=== PATIENT | female | born 1930 | race African-American/Black ===

== ENCOUNTER 2016-08-19 12:29 | Inpatient (IN) ==
--- NOTE | 2016-08-19 13:46 | Ultrasound Report ---
History: Right arm pain and swelling Date: 08/19/2016 Study: Right upper extremity color flow venous Doppler study Comparison exam: No previous similar Color Doppler, wave form analysis, and compression analysis of the deep veins of the right upper extremity from the subclavian and internal jugular vein level through the elbow level was performed. There is some occluding thrombus in the mid to inferior aspect of the medial duplicated brachial vein. The lateral duplicated brachial vein is patent. All other veins are patent. Waveform analysis is otherwise unremarkable. Ultrasound images were captured and archived. Critical test result. Verbal report given to Dr. Colvin at 1:30 PM Impression: Acute DVT right brachial vein PROCEDURE INTERPRETED AT [facility] DEPARTMENT OF RADIOLOGY Final Report Signed by: Dr. Annie Melendez
[2016-08-19] MEDS ORDERED: DEXTROSE 50% 25 GM/50 ML VIAL IV PRN (14:05)
[2016-08-19] MEDS ORDERED: ONDANSETRON 4 MG/2 ML VIAL IV PRN (14:05)
[2016-08-19] MEDS ORDERED: GLUCAGON 1 MG VIAL IM PRN (14:05)
[2016-08-19] MEDS ORDERED: SODIUM CHLORIDE 0.45% 1,000 ML IV SCH (14:30)
[2016-08-19 14:59] LABS: Basophils # 0.1 10*3/uL (0.0-0.2); Basophils % 0.6 % (0.0-0.8); Eosinophils # 0.9 10*3/uL (0.0-0.87); Eosinophils % 9.7 % (0.00-10.9); Hematocrit 33.9 VOL% (35.7-47.0); Hemoglobin 11.2 GM/DL (12.0-16.0); Immature Granulocytes % 0.3 %; Immature Granulocytes Absolute 0.03 #; Lymphocytes # 1.4 10*3/uL (1.4-4.0); Lymphocytes % 15.3 % (21.3-54.2); Mean Corpuscular Hemoglobin 31 PG (27-34); Mean Corpuscular Volume 92.9 FL (87-102); Mean Platelet Volume 12.3 FL (9.6-12.0); Neutrophils # 5.7 10*3/uL (1.4-7.4); Neutrophils % 63.1 % (38.7-73.9); Platelet Count 293 T/CUMM (130-400); Red Blood Count 3.65 MC/CUMM (3.8-5.5)
[2016-08-19 15:35] LABS: Albumin 2.7 G/DL (3.4-5.0); Bilirubin,Total 0.5 MG/DL (0.2-1.0); Calcium 9.2 MG/DL (8.5-10.1); Magnesium 1.6 MG/DL (1.8-2.4); Osmolality,Calculated 283.8 MOS/KG (273-304); Potassium 3.8 MMOL/L (3.5-5.1); Total Protein 7.8 G/DL (6.4-8.3)
[2016-08-19] MEDS: ENOXAPARIN 80 MG/0.8 ML SYRINGE SUBCUT SCH (16:58)
[2016-08-19 17:37] LABS: Apearance,Urine CLEAR (Clear); Bilirubin,Urine Negative (Negative); Blood, Urine Negative (Negative); Glucose,Urine (UA) 50 mg/dL (Negative); Ketones,Urine 5 mg/dL (Negative); Mucus,Urine Occasional /LPF (Occasional); Nitrite,Urine Negative (Negative); Protein,Urine >=500 MG/DL; RBC,Urine 3 /HPF (0-4); Squamous Epithelial Cell,Urine Occasional /HPF (0-10); Urine Color Yellow (Yellow); Urine Specific Gravity 1.013 (1.001-1.035); Urine Urobilinogen < 2.0 EU/DL (0.2-1.0); WBC,Urine 1 /HPF (0-6)
[2016-08-19] MEDS: INSULIN REGULAR 100 UNIT/ML SUBCUT SCH ×2 (18:25→21:44)
--- NOTE | 2016-08-19 19:50 | XRay Report ---
Exam: XR chest 1V portable Indication: Shortness of breath Comparison study: 04/16/2016 Findings: Cardiac silhouette is enlarged, similar to prior. Low lung volumes are noted. There are perihilar and basilar interstitial/airspace opacities, which appear similar to prior may represent underlying interstitial scarring changes with basilar atelectasis. Basilar infiltrates are difficult to exclude. Elevation of the left hemidiaphragm is noted. There is no pneumothorax. Osseous structures appear stable from prior. Advanced degenerative changes are noted in both shoulder joints. Impression: Similar cardiomegaly with chronic interstitial changes and probable basilar scarring/atelectasis. Underlying infiltrates are difficult to exclude. PROCEDURE INTERPRETED AT [facility] DEPARTMENT OF RADIOLOGY Final Report Signed by: Nam Newsome
[2016-08-19] MEDS ORDERED: CETIRIZINE 10 MG TABLET PO PRN (20:26)
--- NOTE | 2016-08-19 20:41 | Family Practice History&Phys ---
Assessment and Plan (1) Acute DVT right brachial vein Status: Acute Assessment and plan: We will admit and start on Lovenox subcutaneously. Will start on Coumadin and adjusted to therapeutic. She is taking Coumadin in the past. She tolerated it well but ultimately it was stopped because of falls. She is now in a more stable environment and should be able to monitor closely. Current Visit: Yes (2) Pancreatic carcinoma Status: Chronic Assessment and plan: This was recently diagnosed by me. She is doing remarkably well so I may ultimately obtain additional current studies Current Visit: Yes (3) History of previous deep vein thrombosis Status: Chronic Assessment and plan: Patient has had previous deep vein thrombosis. She had been on chronic Coumadin therapy but we stopped this due to patient having multiple falls at home. She is now wheelchair-bound and can be monitored closely Current Visit: Yes (4) Asthma Status: Chronic Assessment and plan: Stable on present medications Current Visit: Yes (5) Type 2 diabetes mellitus Status: Chronic Assessment and plan: Stable at present. Will start on sliding scale and monitor closely Current Visit: No Qualifiers: Diabetes mellitus complication status: with kidney complications Chronic kidney disease stage: stage 3 (moderate) (6) diabetic peripheral neuropathy Status: Chronic Assessment and plan: Stable on present medication Current Visit: No (7) gastroesophageal reflux Status: Chronic Assessment and plan: Stable on present medication Current Visit: No (8) hypertension Status: Chronic Assessment and plan: Blood pressures have been elevated according to family members. We will plan to adjust medication Current Visit: No History of Present Illness Chief complaint: Acute deep vein thrombosis right brachial vein History of present illness: Ms. Naqvi is a 85 year old female Patient 85-year-old white female well known to me who is an inpatient at [facility]. She has recently been diagnosed with pancreatic carcinoma. She has been under hospice care at their facility. I have treated this patient for many years and she had requested to see me in clinic. She is actually doing quite well and family states that she has had no significant weight loss. This is surprising in view of the diagnosis of pancreatic carcinoma. Family states that her blood pressures have been elevated. Patient complaining of swelling and pain in her entire right arm over the last week. She apparently had an episode of herpes zoster in the right arm and is has some swelling since that event. There is been increased swelling over the last week with pain. In view of the degree of swelling with diffuse pain a venous Doppler was ordered while in the office. Doppler revealed an acute right brachial vein clot. In view of history we will admit for anticoagulation and further evaluation. She denies any chest pain or shortness of breath. Home Medications Medication Instructions Recorded Confirmed Type Cetirizine Tab [ZyrTEC Tab] 10 mg PO DAILY PRN 11/24/14 04/24/16 History amLODIPine [Norvasc] 10 mg PO DAILY 11/24/14 04/24/16 History metOLazone [Zaroxolyn] 5 mg PO DAILY 11/24/14 04/24/16 History Insulin Glargine,Hum.rec.anlog 35 unit SUBCUT BEDTIME 06/19/15 04/24/16 History [Lantus SoloStar] traMADol TAB [Ultram] 50 mg PO BID 06/19/15 04/24/16 History Carvedilol [Coreg] 6.25 mg PO BID 02/15/16 04/24/16 History Clopidogrel Bisulfate [Clopidogrel] 75 mg PO BEDTIME 04/16/16 04/24/16 History Pantoprazole Tab [Protonix Tab] 40 mg PO DAILY tablet 04/24/16 04/24/16 Rx QUEtiapine [SEROquel] 25 mg PO BID tablet 04/24/16 04/24/16 Rx cloNIDine HCl [Clonidine HCl] 0.1 mg PO BID #60 tablet 05/01/16 Rx Allergies Allergy/AdvReac Type Severity Reaction Status Date / Time acetaminophen Allergy Verified 06/19/15 09:49 [From Darvocet-N] penicillin G Allergy Verified 06/19/15 09:49 propoxyphene Allergy Verified 06/19/15 09:49 [From Darvocet-N] Medical,Surgical,& Family Hx - Medical History Cardio: History of: Hypertension, PVD (dvt-5 years ago) Neurology: History of: Peripheral Neuropathy No history of: Seizures HEENT: History of: Eye Problem (WEARS GLASSES) Endocrine: History of: Diabetes Mellitus (IDDM), Dyslipidemia, Thyroid Disorder (multinodular goiter), Endocrine Cancer (pancreatic cancer) No history of: Diabetes Mellitus (NIDDM) Rheumatology: History of;: Rheumatological Problems (degenerative joint disease) Respiratory: History of: Asthma, COPD Renal: History of: Renal Failure Gastrointestinal: History of: GERD, Pancreatitis (PANCREATIC CANCER) Musculoskeletal: History of: Back/Neck Problems (BACK PROBLEMS), Osteoporosis Hematology: No history of: Anemia, Blood Transfusion Reaction, Bleeding Problems, Clotting Problems, Sickle Cell Disease, Hematologic Cancer, Blood Disorders Reproductive: No history of: Abnormal Pap Smear Other: History of: Miscellaneous Medical Problems (previous deep vein thrombosis ) No history of: Anesthesia Reactions, Cancer - Surgical History Cardiac Surgeries: Patient Denies: Femoral-Popliteal Bypass Graft, Cardiac Catheterization, Cardiac Surgery, Carotid Endarterectomy, Internal Defibrillator, Vascular Access Devices Thoracic Surgeries: Patient denies;: Organ Transplant, Lobectomy Neurologic Surgeries: Patient denies: Neurologic Surgery HEENT Surgeries: Surgical HX of: Eye Surgery (cataracts (BILATERAL)) Patient denies: Carotid Endarterectomy, Thyroid Surgery, Tonsilectomy & Adenoidectomy Abdominal Surgeries: Surgical HX of: Abdominal Surgery, Appendectomy, Colonoscopy Patient denies: Cholecystectomy, Splenectomy Reproductive Surgeries: Surgical HX of;: Gynecologic Surgery (hysterectomy), Hysterectomy (PARTIAL) Orthopedic Surgeries: Surgical HX of;: Total Hip Replacement (right), Total Knee Replacement (bilateral) - Family History Family History: Reports;: Family Diabetes, Family Hypertension, Family Stroke Denies;: Family Cancer - Social History Smoking Status: Never smoker Frequency of Alcohol Use: None Type of Drug Use: None Marital Status: Lives With:: [employer] Functional capacity: wheelchair bound Exam - Constitutional Vitals: Period Temp Pulse Resp BP Sys/Mojica Pulse Ox Last 24 Hr 98.9 F 122 22 168/81 97 General appearance: mild distress - Head Head exam: Present: normal inspection - ENT ENT exam: Present: normal exam - Neck Neck exam: Present: normal inspection - Respiratory Respiratory exam: Present: clear to auscultation bilaterally - Cardiovascular Cardiovascular exam: Present: irregular rhythm - GI/Abdominal GI/Abdominal exam: Present: normal bowel sounds, soft - Extremities Exam Extremities exam: Present: other (Patient has significant swelling in the entire right arm was diffuse tenderness over the posterior medial aspect of the right upper.) - Back Exam Back exam: Present: vertebral tenderness - Neurological Exam Neurological exam: Present: alert, oriented X3 - Psychiatric Psychiatric exam: Present: normal affect, flat affect - Skin Skin exam: Present: normal color Results - Labs CBC & BMP: 08/19/16 14:41 08/19/16 14:41
[2016-08-19] MEDS: DOCUSATE SODIUM 100 MG CAPSULE PO SCH (20:54)
[2016-08-19] MEDS: cloNIDine 0.1 MG TABLET PO SCH (20:55)
[2016-08-19] MEDS: QUEtiapine 25 MG TABLET PO SCH (20:55)
[2016-08-19] MEDS: CARVEDILOL 12.5 MG TABLET PO SCH (20:55)
[2016-08-19] MEDS ORDERED: hydrALAZINE 25 MG TABLET PO SCH (21:00)
[2016-08-19] MEDS: ZALEPLON 5 MG CAPSULE PO SCH (21:43)
[2016-08-19] MEDS: INSULIN GLARGINE 100 UNIT/ML SUBCUT SCH (21:43)
[2016-08-19] MEDS: ESCITALOPRAM 10 MG TABLET PO SCH (21:43)
[2016-08-19] MEDS: traMADol 50 MG TABLET PO SCH (21:50)
[2016-08-19] MEDS: BUDESONIDE/FORMOTEROL 160-4.5 INHALER 6 GM INH SCH (23:50)
[2016-08-20] MEDS: ENOXAPARIN 80 MG/0.8 ML SYRINGE SUBCUT SCH ×2 (03:36→20:36)
[2016-08-20 06:14] LABS: INR 1.1; PT Patient Result 11.6 SECS
[2016-08-20 06:15] LABS: Risk Ratio 2.81; VLDL CHOLESTEROL 15.2 MG/DL
[2016-08-20 06:20] LABS: Basophils # 0.1 10*3/uL (0.0-0.2); Basophils % 0.6 % (0.0-0.8); Eosinophils # 0.9 10*3/uL (0.0-0.87); Eosinophils % 10.6 % (0.00-10.9); Immature Granulocytes % 0.5 %; Immature Granulocytes Absolute 0.04 #; Lymphocytes # 1.7 10*3/uL (1.4-4.0); Lymphocytes % 20.2 % (21.3-54.2); Mean Corpuscular HGB Conc 33.3 GM/DL (32-36); Mean Corpuscular Hemoglobin 31 PG (27-34); Mean Corpuscular Volume 92.3 FL (87-102); Monocytes # 1.1 10*3/uL (0.11-0.8); Monocytes % 12.9 % (1.7-12.7); Neutrophils # 4.6 10*3/uL (1.4-7.4); Neutrophils % 55.2 % (38.7-73.9); Platelet Count 264 T/CUMM (130-400); Red Blood Count 3.25 MC/CUMM (3.8-5.5); White Blood Count 8.4 T/CUMM (4-12)
[2016-08-20 06:28] LABS: Calcium 8.7 MG/DL (8.5-10.1); Osmolality,Calculated 271.7 MOS/KG (273-304); Thyroid Stimulating Hormone 2.43 uIU/ml (0.358-3.74)
[2016-08-20] MEDS ORDERED: SODIUM CHLOR 0.9% KCL 20 MEQ 20 MEQ/1,000 ML BAG IV SCH (08:00)
--- NOTE | 2016-08-20 08:10 | Family Practice Progress Note ---
Family Practice - PN: Subj Interval history: Patient states she rested well last p.m. She denies any chest pain shortness of breath or other new related complaints. Her blood pressures remain elevated and I have modified her blood pressure medications. Her a.m. labs are stable except potassium is decreased at 3.0. I have added potassium to supplementation and will repeat in a.m.. I have started oral Coumadin and will plan to titrate on a daily basis. Will otherwise continue present treatment plan Exam (Progress Note) - Constitutional Vitals: Period Temp Pulse Resp BP Sys/Mojica Pulse Ox Last 24 Hr 98.2 F-99.3 F 71-125 18-22 156-170/79-94 95-100 Results - Labs CBC & BMP: 08/20/16 05:15 08/20/16 05:15 Assessment and Plan (1) Acute DVT right brachial vein Status: Acute Assessment and plan: We will admit and start on Lovenox subcutaneously. Will start on Coumadin and adjusted to therapeutic. She is taking Coumadin in the past. She tolerated it well but ultimately it was stopped because of falls. She is now in a more stable environment and should be able to monitor closely. Current Visit: Yes (2) Pancreatic carcinoma Status: Chronic Assessment and plan: This was recently diagnosed by me. She is doing remarkably well so I may ultimately obtain additional current studies Current Visit: Yes (3) History of previous deep vein thrombosis Status: Chronic Assessment and plan: Patient has had previous deep vein thrombosis. She had been on chronic Coumadin therapy but we stopped this due to patient having multiple falls at home. She is now wheelchair-bound and can be monitored closely Current Visit: Yes (4) Asthma Status: Chronic Assessment and plan: Stable on present medications Current Visit: Yes (5) Type 2 diabetes mellitus Status: Chronic Assessment and plan: Stable at present. Will start on sliding scale and monitor closely Current Visit: No Qualifiers: Diabetes mellitus complication status: with kidney complications Chronic kidney disease stage: stage 3 (moderate) (6) diabetic peripheral neuropathy Status: Chronic Assessment and plan: Stable on present medication Current Visit: No (7) gastroesophageal reflux Status: Chronic Assessment and plan: Stable on present medication Current Visit: No (8) hypertension Status: Chronic Assessment and plan: Blood pressures have been elevated according to family members. We will plan to adjust medication Current Visit: No
[2016-08-20] MEDS: INSULIN REGULAR 100 UNIT/ML SUBCUT SCH ×4 (09:58→21:45)
[2016-08-20] MEDS: DOCUSATE SODIUM 100 MG CAPSULE PO SCH ×2 (09:58→20:37)
[2016-08-20] MEDS: PANTOPRAZOLE 40 MG TABLET PO SCH (09:58)
[2016-08-20] MEDS: amLODIPine 10 MG TABLET PO SCH (09:58)
[2016-08-20] MEDS: traMADol 50 MG TABLET PO SCH ×2 (09:59→20:38)
[2016-08-20] MEDS: metOLazone 5 MG TABLET PO SCH (09:59)
[2016-08-20] MEDS: CARVEDILOL 12.5 MG TABLET PO SCH ×2 (09:59→20:38)
[2016-08-20] MEDS: cloNIDine 0.1 MG TABLET PO SCH ×2 (09:59→20:38)
[2016-08-20] MEDS: BUDESONIDE/FORMOTEROL 160-4.5 INHALER 6 GM INH SCH ×2 (09:59→20:43)
[2016-08-20] MEDS: QUEtiapine 25 MG TABLET PO SCH ×2 (09:59→20:37)
[2016-08-20] MEDS: oxyCODONE/ACETAMINOPHEN 5-325 MG TABLET PO PRN (12:26)
[2016-08-20] MEDS: WARFARIN 5 MG TABLET PO SCH (17:41)
[2016-08-20] MEDS: ZALEPLON 5 MG CAPSULE PO SCH (20:37)
[2016-08-20] MEDS: ESCITALOPRAM 10 MG TABLET PO SCH (20:37)
[2016-08-20] MEDS: INSULIN GLARGINE 100 UNIT/ML SUBCUT SCH (21:46)
[2016-08-21 07:40] LABS: Basophils % 0.6 % (0.0-0.8); Eosinophils # 0.2 10*3/uL (0.0-0.87); Eosinophils % 2.6 % (0.00-10.9); Hematocrit 28.6 VOL% (35.7-47.0); Hemoglobin 9.4 GM/DL (12.0-16.0); Immature Granulocytes % 0.3 %; Immature Granulocytes Absolute 0.02 #; Lymphocytes # 1.3 10*3/uL (1.4-4.0); Lymphocytes % 18.8 % (21.3-54.2); Mean Corpuscular HGB Conc 32.9 GM/DL (32-36); Mean Corpuscular Hemoglobin 31 PG (27-34); Mean Corpuscular Volume 93.8 FL (87-102); Monocytes # 0.6 10*3/uL (0.11-0.8); Monocytes % 8.9 % (1.7-12.7); Neutrophils # 4.7 10*3/uL (1.4-7.4); Neutrophils % 68.8 % (38.7-73.9); Platelet Count 243 T/CUMM (130-400); Red Blood Count 3.05 MC/CUMM (3.8-5.5); Red Cell Distribution Width 15.4 % (9.3-17.3); White Blood Count 6.9 T/CUMM (4-12)
[2016-08-21 07:54] LABS: INR 1.1; PT Patient Result 11.4 SECS
[2016-08-21] MEDS ORDERED: WARFARIN 2 MG TABLET PO ONE (08:00)
[2016-08-21 08:15] LABS: Calcium 8.6 MG/DL (8.5-10.1); Osmolality,Calculated 286.4 MOS/KG (273-304); Potassium 3.2 MMOL/L (3.5-5.1)
--- NOTE | 2016-08-21 08:35 | Family Practice Progress Note ---
Family Practice - PN: Subj Interval history: Patient states that she is generally doing well. Still has swelling in right arm side of clot but no significant pain. Denies any new complaints. Her a.m. labs the INR is still subtherapeutic at 1.1. Will give extra dose of Coumadin today. Her a.m. potassium is still slightly decreased at 3.2 and a magnesium is decreased. Have added potassium and magnesium to IV supplementation. We will also adjust her sliding scale as her blood sugars are elevated. Her physical exam is otherwise stable. We will continue present treatment plan Exam (Progress Note) - Constitutional Vitals: Period Temp Pulse Resp BP Sys/Mojica Pulse Ox Last 24 Hr 97.2 F-99.0 F 78-122 18-22 131-167/70-88 94-100 Results - Labs CBC & BMP: 08/21/16 06:38 08/21/16 06:38 Assessment and Plan (1) Acute DVT right brachial vein Status: Acute Assessment and plan: We will admit and start on Lovenox subcutaneously. Will start on Coumadin and adjusted to therapeutic. She is taking Coumadin in the past. She tolerated it well but ultimately it was stopped because of falls. She is now in a more stable environment and should be able to monitor closely. Current Visit: Yes (2) Pancreatic carcinoma Status: Chronic Assessment and plan: This was recently diagnosed by me. She is doing remarkably well so I may ultimately obtain additional current studies Current Visit: Yes (3) History of previous deep vein thrombosis Status: Chronic Assessment and plan: Patient has had previous deep vein thrombosis. She had been on chronic Coumadin therapy but we stopped this due to patient having multiple falls at home. She is now wheelchair-bound and can be monitored closely Current Visit: Yes (4) Asthma Status: Chronic Assessment and plan: Stable on present medications Current Visit: Yes (5) Type 2 diabetes mellitus Status: Chronic Assessment and plan: Stable at present. Will start on sliding scale and monitor closely Current Visit: No Qualifiers: Diabetes mellitus complication status: with kidney complications Chronic kidney disease stage: stage 3 (moderate) (6) diabetic peripheral neuropathy Status: Chronic Assessment and plan: Stable on present medication Current Visit: No (7) gastroesophageal reflux Status: Chronic Assessment and plan: Stable on present medication Current Visit: No (8) hypertension Status: Chronic Assessment and plan: Blood pressures have been elevated according to family members. We will plan to adjust medication Current Visit: No
[2016-08-21] MEDS: INSULIN REGULAR 100 UNIT/ML SUBCUT SCH ×4 (09:44→21:21)
[2016-08-21] MEDS: ENOXAPARIN 80 MG/0.8 ML SYRINGE SUBCUT SCH ×2 (09:45→21:13)
[2016-08-21] MEDS: cloNIDine 0.1 MG TABLET PO SCH ×2 (09:45→21:13)
[2016-08-21] MEDS: PANTOPRAZOLE 40 MG TABLET PO SCH (09:45)
[2016-08-21] MEDS: amLODIPine 10 MG TABLET PO SCH (09:45)
[2016-08-21] MEDS: CARVEDILOL 12.5 MG TABLET PO SCH ×2 (09:45→21:13)
[2016-08-21] MEDS: metOLazone 5 MG TABLET PO SCH (09:45)
[2016-08-21] MEDS: traMADol 50 MG TABLET PO SCH ×2 (09:46→21:13)
[2016-08-21] MEDS: QUEtiapine 25 MG TABLET PO SCH ×2 (09:46→21:13)
[2016-08-21] MEDS: BUDESONIDE/FORMOTEROL 160-4.5 INHALER 6 GM INH SCH ×2 (09:47→21:16)
[2016-08-21] MEDS: DOCUSATE SODIUM 100 MG CAPSULE PO SCH ×2 (09:47→21:21)
[2016-08-21] MEDS: BISMUTH SUBSALICYLATE 30 ML/524 MG 240 ML/BOTTLE PO PRN ×3 (12:37→21:13)
[2016-08-21] MEDS: POTASSIUM CHLORIDE INJ 10 MEQ, MAGNESIUM SULF INJ 1 GM in SODIUM CHLORIDE 0.45% 1,000 ML IV SCH (15:28)
[2016-08-21] MEDS: WARFARIN 5 MG TABLET PO SCH (18:29)
[2016-08-21] MEDS: ESCITALOPRAM 10 MG TABLET PO SCH (21:13)
[2016-08-21] MEDS: ZALEPLON 5 MG CAPSULE PO SCH (21:13)
[2016-08-21] MEDS: INSULIN GLARGINE 100 UNIT/ML SUBCUT SCH (21:20)
[2016-08-22 04:22] LABS: Basophils # 0.1 10*3/uL (0.0-0.2); Basophils % 0.7 % (0.0-0.8); Eosinophils # 0.8 10*3/uL (0.0-0.87); Hematocrit 28.5 VOL% (35.7-47.0); Hemoglobin 9.4 GM/DL (12.0-16.0); Immature Granulocytes % 0.4 %; Immature Granulocytes Absolute 0.03 #; Lymphocytes # 1.7 10*3/uL (1.4-4.0); Lymphocytes % 22.3 % (21.3-54.2); Mean Corpuscular Hemoglobin 31 PG (27-34); Mean Corpuscular Volume 93.1 FL (87-102); Mean Platelet Volume 12.4 FL (9.6-12.0); Monocytes # 0.8 10*3/uL (0.11-0.8); Monocytes % 11.1 % (1.7-12.7); Neutrophils # 4.2 10*3/uL (1.4-7.4); Neutrophils % 55.5 % (38.7-73.9); Platelet Count 261 T/CUMM (130-400); Red Blood Count 3.06 MC/CUMM (3.8-5.5); Red Cell Distribution Width 15.3 % (9.3-17.3); White Blood Count 7.5 T/CUMM (4-12)
[2016-08-22 04:34] LABS: INR 1.2; PT Patient Result 13.3 SECS
[2016-08-22] MEDS: BISMUTH SUBSALICYLATE 30 ML/524 MG 240 ML/BOTTLE PO PRN ×3 (04:45→14:37)
[2016-08-22 04:49] LABS: Calcium 8.4 MG/DL (8.5-10.1); Osmolality,Calculated 279.7 MOS/KG (273-304); Potassium 2.9 MMOL/L (3.5-5.1)
[2016-08-22] MEDS: INSULIN REGULAR 100 UNIT/ML SUBCUT SCH ×4 (10:08→20:40)
[2016-08-22] MEDS: ENOXAPARIN 80 MG/0.8 ML SYRINGE SUBCUT SCH ×2 (10:08→20:33)
[2016-08-22] MEDS: PANTOPRAZOLE 40 MG TABLET PO SCH (10:09)
[2016-08-22] MEDS: QUEtiapine 25 MG TABLET PO SCH ×2 (10:09→20:34)
[2016-08-22] MEDS: traMADol 50 MG TABLET PO SCH ×2 (10:09→20:34)
[2016-08-22] MEDS: cloNIDine 0.1 MG TABLET PO SCH ×2 (10:09→20:34)
[2016-08-22] MEDS: DOCUSATE SODIUM 100 MG CAPSULE PO SCH ×2 (10:09→20:35)
[2016-08-22] MEDS: amLODIPine 10 MG TABLET PO SCH (10:09)
[2016-08-22] MEDS: metOLazone 5 MG TABLET PO SCH (10:09)
[2016-08-22] MEDS: CARVEDILOL 12.5 MG TABLET PO SCH ×2 (10:09→20:34)
[2016-08-22] MEDS: BUDESONIDE/FORMOTEROL 160-4.5 INHALER 6 GM INH SCH ×2 (10:10→20:40)
[2016-08-22] MEDS: POTASSIUM CHLORIDE RIDER 10 MEQ in PREMIX 1 EACH IV SCH ×4 (10:23→14:33)
[2016-08-22] MEDS: fentaNYL 25 MCG/HR PATCH TRANSDERM SCH (10:52)
--- NOTE | 2016-08-22 13:04 | Family Practice Progress Note ---
Family Practice - PN: Subj Interval history: Patient was admitted with acute swelling and pain in her right arm. Found to have a clot in the right brachial vein. She has a history of recurrent deep vein thrombosis and had been on chronic Coumadin. We had stopped this at home because of frequent falls. She was recently admitted and found to have pancreatic carcinoma. She is presently living in a nursing care facility. She is on Lovenox at present and I have started increasing dose of Coumadin until therapeutic. She is primarily restricted to a wheelchair and is being monitored closely so hopefully will be able to do well with the Coumadin. Her INR this a.m. is 1.2. We will continue present treatment plan Exam (Progress Note) - Constitutional Vitals: Period Temp Pulse Resp BP Sys/Mojica Pulse Ox Last 24 Hr 97.7 F-98.7 F 76-120 16-22 143-182/63-89 2-99 Results - Labs CBC & BMP: 08/22/16 03:34 08/22/16 03:34 Assessment and Plan (1) Acute DVT right brachial vein Status: Acute Assessment and plan: We will admit and start on Lovenox subcutaneously. Will start on Coumadin and adjusted to therapeutic. She is taking Coumadin in the past. She tolerated it well but ultimately it was stopped because of falls. She is now in a more stable environment and should be able to monitor closely. Current Visit: Yes (2) Pancreatic carcinoma Status: Chronic Assessment and plan: This was recently diagnosed by me. She is doing remarkably well so I may ultimately obtain additional current studies Current Visit: Yes (3) History of previous deep vein thrombosis Status: Chronic Assessment and plan: Patient has had previous deep vein thrombosis. She had been on chronic Coumadin therapy but we stopped this due to patient having multiple falls at home. She is now wheelchair-bound and can be monitored closely Current Visit: Yes (4) Asthma Status: Chronic Assessment and plan: Stable on present medications Current Visit: Yes (5) Type 2 diabetes mellitus Status: Chronic Assessment and plan: Stable at present. Will start on sliding scale and monitor closely Current Visit: No Qualifiers: Diabetes mellitus complication status: with kidney complications Chronic kidney disease stage: stage 3 (moderate) (6) diabetic peripheral neuropathy Status: Chronic Assessment and plan: Stable on present medication Current Visit: No (7) gastroesophageal reflux Status: Chronic Assessment and plan: Stable on present medication Current Visit: No (8) hypertension Status: Chronic Assessment and plan: Blood pressures have been elevated according to family members. We will plan to adjust medication Current Visit: No
[2016-08-22] MEDS: WARFARIN 5 MG TABLET PO SCH (19:08)
[2016-08-22] MEDS: ESCITALOPRAM 10 MG TABLET PO SCH (20:34)
[2016-08-22] MEDS: ZALEPLON 5 MG CAPSULE PO SCH (20:34)
[2016-08-22] MEDS: INSULIN GLARGINE 100 UNIT/ML SUBCUT SCH (20:41)
[2016-08-22] MEDS: POTASSIUM CHLORIDE INJ 10 MEQ, MAGNESIUM SULF INJ 1 GM in SODIUM CHLORIDE 0.45% 1,000 ML IV SCH ×2 (21:56→21:57)
[2016-08-23 07:28] LABS: Basophils # 0.1 10*3/uL (0.0-0.2); Basophils % 0.8 % (0.0-0.8); Eosinophils # 1.8 10*3/uL (0.0-0.87); Eosinophils % 23.7 % (0.00-10.9); Hematocrit 29.7 VOL% (35.7-47.0); Hemoglobin 9.5 GM/DL (12.0-16.0); Immature Granulocytes % 0.3 %; Immature Granulocytes Absolute 0.02 #; Lymphocytes # 1.6 10*3/uL (1.4-4.0); Lymphocytes % 20.3 % (21.3-54.2); Mean Corpuscular Hemoglobin 31 PG (27-34); Mean Corpuscular Volume 95.5 FL (87-102); Mean Platelet Volume 11.9 FL (9.6-12.0); Monocytes # 0.8 10*3/uL (0.11-0.8); Monocytes % 10.8 % (1.7-12.7); Neutrophils # 3.4 10*3/uL (1.4-7.4); Neutrophils % 44.1 % (38.7-73.9); Platelet Count 284 T/CUMM (130-400); Red Blood Count 3.11 MC/CUMM (3.8-5.5); Red Cell Distribution Width 15.4 % (9.3-17.3); White Blood Count 7.7 T/CUMM (4-12)
[2016-08-23 07:36] LABS: INR 1.7
[2016-08-23 07:50] LABS: Eosinophils 27 % (0-10); Lymphocytes 20 % (20-55); Platelet Estimate Adequate; Segmented Neutrophils 47 % (50-85); Total Cells Counted 100
[2016-08-23 07:51] LABS: Hypochromasia 1+; Ovalocytes Slight
[2016-08-23 07:54] LABS: Calcium 8.4 MG/DL (8.5-10.1); Osmolality,Calculated 276.8 MOS/KG (273-304); Potassium 3.1 MMOL/L (3.5-5.1)
[2016-08-23] MEDS: ENOXAPARIN 80 MG/0.8 ML SYRINGE SUBCUT SCH ×2 (09:26→20:36)
[2016-08-23] MEDS: INSULIN REGULAR 100 UNIT/ML SUBCUT SCH ×4 (09:26→22:02)
[2016-08-23] MEDS: QUEtiapine 25 MG TABLET PO SCH ×2 (09:27→20:39)
[2016-08-23] MEDS: PANTOPRAZOLE 40 MG TABLET PO SCH (09:27)
[2016-08-23] MEDS: metOLazone 5 MG TABLET PO SCH (09:27)
[2016-08-23] MEDS: CARVEDILOL 12.5 MG TABLET PO SCH ×2 (09:27→20:39)
[2016-08-23] MEDS: DOCUSATE SODIUM 100 MG CAPSULE PO SCH ×2 (09:27→20:39)
[2016-08-23] MEDS: BUDESONIDE/FORMOTEROL 160-4.5 INHALER 6 GM INH SCH ×2 (09:28→20:35)
[2016-08-23] MEDS: POTASSIUM CHLORIDE INJ 10 MEQ, MAGNESIUM SULF INJ 1 GM in SODIUM CHLORIDE 0.45% 1,000 ML IV SCH ×2 (09:53→13:31)
[2016-08-23] MEDS: cloNIDine 0.1 MG TABLET PO SCH ×2 (09:54→20:40)
[2016-08-23] MEDS: traMADol 50 MG TABLET PO SCH ×2 (09:54→20:39)
[2016-08-23] MEDS: amLODIPine 10 MG TABLET PO SCH (09:57)
--- NOTE | 2016-08-23 11:06 | Internal Med Progress Note ---
Assessment and Plan (1) Acute DVT right brachial vein Status: Acute Assessment and plan: 85-year-old female implanted to acute care * Acute DVT of right brachial vein. Patient has been on anticoagulation. Her INR is 1.7 today. Continue current treatment. * Hypokalemia. Will replace her potassium * Hypertension. Blood pressure is stable * History of pancreatic cancer. Stable * Diabetes. Continue current treatment Current Visit: Yes (2) Pancreatic carcinoma Status: Chronic Current Visit: Yes (3) Type 2 diabetes mellitus Status: Chronic Current Visit: No Qualifiers: Diabetes mellitus complication status: with kidney complications Chronic kidney disease stage: stage 3 (moderate) (4) diabetic nephropathy Problem details: Stable. Status: Chronic Current Visit: No (5) gastroesophageal reflux Status: Chronic Current Visit: No (6) hypertension Status: Chronic Current Visit: No Internal Medicine - PN: Subj Interval history: 85-year-old female who was admitted with pain and swelling in her right arm. She has history of recurrent DVT. Patient has been started on Coumadin and Lovenox. She has history of diabetes, diabetic neuropathy, gastroesophageal reflux disease, hypertension, pancreatic cancer. She is feeling better this morning. No chest pain or shortness of breath. No nausea or vomiting Exam (Progress Note) - Constitutional Vitals: Period Temp Pulse Resp BP Sys/Mojica Pulse Ox Last 24 Hr 97.1 F-98.6 F 112-128 20-24 131-182/59-84 2-100 General appearance: no acute distress, over weight - Head Head exam: Present: normal inspection - Eye Eye exam: Present: EOMI Pupils: Present: LELO - Neck Neck exam: Present: normal inspection - Respiratory Respiratory exam: Present: clear to auscultation bilaterally - Cardiovascular Cardiovascular exam: Present: regular rate and rhythm - GI/Abdominal GI/Abdominal exam: Present: normal bowel sounds, soft. Absent: tenderness - Extremities Exam Extremities exam: Present: normal inspection, other (Has swelling in the right upper extremity). Absent: edema Results - Labs CBC & BMP: 08/23/16 07:00 08/23/16 07:00 Lab Results: I have reviewed the past 24 hour labs
[2016-08-23] MEDS: POTASSIUM CHLORIDE 8 MEQ CAPSULE PO SCH ×2 (13:31→20:39)
[2016-08-23] MEDS: oxyCODONE/ACETAMINOPHEN 5-325 MG TABLET PO PRN (15:31)
[2016-08-23] MEDS: WARFARIN 5 MG TABLET PO SCH (17:49)
[2016-08-23] MEDS: ESCITALOPRAM 10 MG TABLET PO SCH (20:39)
[2016-08-23] MEDS: ZALEPLON 5 MG CAPSULE PO SCH (20:39)
[2016-08-23] MEDS: INSULIN GLARGINE 100 UNIT/ML SUBCUT SCH (22:02)
[2016-08-24] MEDS: POTASSIUM CHLORIDE INJ 10 MEQ, MAGNESIUM SULF INJ 1 GM in SODIUM CHLORIDE 0.45% 1,000 ML IV SCH ×2 (04:49)
[2016-08-24 06:58] LABS: INR 2.1
[2016-08-24 07:04] LABS: PT Patient Result 22.9 SECS
[2016-08-24 07:28] LABS: Calcium 8.3 MG/DL (8.5-10.1); Osmolality,Calculated 277.7 MOS/KG (273-304); Potassium 3.3 MMOL/L (3.5-5.1)
[2016-08-24] MEDS: amLODIPine 10 MG TABLET PO SCH (09:24)
[2016-08-24] MEDS: metOLazone 5 MG TABLET PO SCH (09:24)
[2016-08-24] MEDS: QUEtiapine 25 MG TABLET PO SCH ×2 (09:24→20:50)
[2016-08-24] MEDS: DOCUSATE SODIUM 100 MG CAPSULE PO SCH ×2 (09:24→20:51)
[2016-08-24] MEDS: POTASSIUM CHLORIDE 8 MEQ CAPSULE PO SCH ×3 (09:24→20:51)
[2016-08-24] MEDS: traMADol 50 MG TABLET PO SCH ×2 (09:24→20:50)
[2016-08-24] MEDS: PANTOPRAZOLE 40 MG TABLET PO SCH (09:25)
[2016-08-24] MEDS: cloNIDine 0.1 MG TABLET PO SCH ×2 (09:25→20:51)
[2016-08-24] MEDS: INSULIN REGULAR 100 UNIT/ML SUBCUT SCH ×4 (09:25→21:00)
[2016-08-24] MEDS: CARVEDILOL 12.5 MG TABLET PO SCH ×2 (09:25→20:50)
[2016-08-24] MEDS: ENOXAPARIN 80 MG/0.8 ML SYRINGE SUBCUT SCH (09:28)
[2016-08-24] MEDS: BUDESONIDE/FORMOTEROL 160-4.5 INHALER 6 GM INH SCH ×2 (09:28→20:50)
--- NOTE | 2016-08-24 10:22 | Internal Med Progress Note ---
Assessment and Plan (1) Acute DVT right brachial vein Status: Acute Assessment and plan: 85-year-old female implanted to acute care * Acute DVT of right brachial vein. INR is 2. Will DC Lovenox * Hypokalemia. Will replace her potassium * Hypertension. Blood pressure is stable * History of pancreatic cancer. Stable * Diabetes. Continue current treatment * She is eating better. We will DC IV fluid Current Visit: Yes (2) Pancreatic carcinoma Status: Chronic Current Visit: Yes (3) Type 2 diabetes mellitus Status: Chronic Current Visit: No Qualifiers: Diabetes mellitus complication status: with kidney complications Chronic kidney disease stage: stage 3 (moderate) (4) diabetic nephropathy Problem details: Stable. Status: Chronic Current Visit: No (5) gastroesophageal reflux Status: Chronic Current Visit: No (6) hypertension Status: Chronic Current Visit: No Internal Medicine - PN: Subj Interval history: 85-year-old female who was admitted with pain and swelling in her right arm. She has history of recurrent DVT. Patient has been started on Coumadin and Lovenox. She has history of diabetes, diabetic neuropathy, gastroesophageal reflux disease, hypertension, pancreatic cancer. She is still having some pain in her right arm. She finds difficult to eat. No chest pain or shortness of breath. Exam (Progress Note) - Constitutional Vitals: Period Temp Pulse Resp BP Sys/Mojica Pulse Ox Last 24 Hr 98.2 F-98.6 F 80-121 18-24 137-204/60-89 95-100 General appearance: over weight - Head Head exam: Present: normal inspection - Eye Eye exam: Present: EOMI Pupils: Present: LELO - Neck Neck exam: Present: normal inspection - Respiratory Respiratory exam: Present: clear to auscultation bilaterally - GI/Abdominal GI/Abdominal exam: Present: normal bowel sounds, soft. Absent: tenderness - Extremities Exam Extremities exam: Present: normal inspection, other (Swelling in the right upper extremity). Absent: edema Results - Labs CBC & BMP: 08/23/16 07:00 08/24/16 04:21 Lab Results: I have reviewed the past 24 hour labs
[2016-08-24] MEDS: oxyCODONE/ACETAMINOPHEN 5-325 MG TABLET PO PRN (13:02)
[2016-08-24] MEDS: WARFARIN 5 MG TABLET PO SCH (18:32)
[2016-08-24] MEDS: INSULIN GLARGINE 100 UNIT/ML SUBCUT SCH (20:50)
[2016-08-24] MEDS: ZALEPLON 5 MG CAPSULE PO SCH (20:51)
[2016-08-24] MEDS: ESCITALOPRAM 10 MG TABLET PO SCH (20:51)
[2016-08-25] MEDS: oxyCODONE/ACETAMINOPHEN 5-325 MG TABLET PO PRN (06:11)
--- NOTE | 2016-08-25 07:49 | Discharge Summary ---
Hospital Course - Hospital Course Hospital Course: Ms. Naqvi is a 85 year old female Patient 85-year-old white female well known to me who is an inpatient at [facility]. She has recently been diagnosed with pancreatic carcinoma. She has been under hospice care at their facility. I have treated this patient for many years and she had requested to see me in clinic. She is actually doing quite well and family states that she has had no significant weight loss. This is surprising in view of the diagnosis of pancreatic carcinoma. Family states that her blood pressures have been elevated. Patient complaining of swelling and pain in her entire right arm over the last week. She apparently had an episode of herpes zoster in the right arm and is has some swelling since that event. There is been increased swelling over the last week with pain. In view of the degree of swelling with diffuse pain a venous Doppler was ordered while in the office. Doppler revealed an acute right brachial vein clot. In view of history we will admit for anticoagulation and further evaluation. She denies any chest pain or shortness of breath. Hospital course-patient was admitted to hospital lab and x-ray studies obtained. She was initially started on Lovenox subcutaneously and subsequently started on oral Coumadin. Patient did remarkably well and had no problems throughout admission. An INR was checked daily and is now therapeutic at 2.0. Swelling in right arm is slightly improved but has no pain today. Advised that the swelling may improve with time but it may not go away at all. Will discharge patient back to the nursing care facility and have them check weekly protimes to maintain therapeutic levels. We will have him advance to monthly protimes as indicated. She really needs to remain on Coumadin for the remainder of her life. She has had multiple DVTs in the past. Will discharge to their facility and send copies the appropriate records. If patient continues to maintain weight and do well I would consider repeating a abdominal CT in the near future. Diagnosis - Discharge Diagnosis (1) Acute DVT right brachial vein Status: Acute (2) Pancreatic carcinoma Status: Chronic (3) History of previous deep vein thrombosis Status: Chronic (4) Asthma Status: Chronic (5) Type 2 diabetes mellitus Status: Chronic (6) diabetic peripheral neuropathy Status: Chronic (7) gastroesophageal reflux Status: Chronic (8) hypertension Status: Chronic Discharge Plan - Discharge Data Disposition: Disch/Xfer to Snf Condition at Discharge: Stable Discharge Diet: diabetic diet Activity: ambulate only with your walker Hygiene: may shower Weight Bearing at Discharge: weight bear as tolerated Contact your physician if you experience:: fever over 101, Shortness of breath - Discharge Medications New Carvedilol [Coreg] 25 mg PO BID #60 tablet Warfarin [Coumadin] 5 mg PO DAILY@1800 #30 tablet Discontinued Carvedilol [Coreg] 6.25 mg PO BID Clopidogrel Bisulfate [Clopidogrel] 75 mg PO BEDTIME No Action amLODIPine [Norvasc] 10 mg PO DAILY Cetirizine Tab [ZyrTEC Tab] 10 mg PO DAILY PRN PRN Reason: Sinus Symptoms metOLazone [Zaroxolyn] 5 mg PO DAILY traMADol TAB [Ultram] 50 mg PO BID Insulin Glargine,Hum.rec.anlog [Lantus SoloStar] 35 unit SUBCUT BEDTIME QUEtiapine [SEROquel] 25 mg PO BID tablet Pantoprazole Tab [Protonix Tab] 40 mg PO DAILY tablet cloNIDine HCl [Clonidine HCl] 0.1 mg PO BID #60 tablet - Follow Up or Referral Follow Up: Miguelangel Colvin DO [Primary Care Provider] - 1 Month - Forms/Instructions Exam - Constitutional Vitals: Period Temp Pulse Resp BP Sys/Mojica Pulse Ox Last 24 Hr 97.8 F-98.6 F 105-121 20-22 146-204/76-89 99-100 General appearance: no acute distress - Head Head exam: Present: normal inspection - ENT ENT exam: Present: normal exam - Respiratory Respiratory exam: Present: clear to auscultation bilaterally - Cardiovascular Cardiovascular exam: Present: irregular rhythm - GI/Abdominal GI/Abdominal exam: Present: normal bowel sounds, soft - Extremities Exam Extremities exam: Present: other (Patient has significant swelling in the entire right arm. She is wheelchair-bound at present) - Back Exam Back exam: Present: normal inspection - Neurological Exam Neurological exam: Present: alert, oriented X3 - Psychiatric Psychiatric exam: Present: normal affect - Skin Skin exam: Present: normal color Discharge Results Labs on day of discharge: Labs from last 24 hours 08/25/16 08/24/16 08/24/16 04:33 20:18 16:36 INR 2.0 PT Patient/Control Mix 22.0 POC Glucose 137 H 149 H 08/24/16 08/24/16 10:22 08:58 INR PT Patient/Control Mix POC Glucose 244 H 255 H DS: Provider Date of admission: 08/19/16 14:05 Primary care physician: Miguelangel Colvin DO Attending physician on admission: Miguelangel Colvin DO Discharging clinician: Miguelangel Colvin DO
[2016-08-25] MEDS ORDERED: CARVEDILOL 25 MG TABLET PO SCH (08:00)
[2016-08-25] MEDS: INSULIN REGULAR 100 UNIT/ML SUBCUT SCH (09:33)
[2016-08-25] MEDS: fentaNYL 25 MCG/HR PATCH TRANSDERM SCH (09:34)
[2016-08-25] MEDS: metOLazone 5 MG TABLET PO SCH (09:35)
[2016-08-25] MEDS: QUEtiapine 25 MG TABLET PO SCH (09:36)
[2016-08-25] MEDS: DOCUSATE SODIUM 100 MG CAPSULE PO SCH (09:36)
[2016-08-25] MEDS: traMADol 50 MG TABLET PO SCH (09:36)
[2016-08-25] MEDS: POTASSIUM CHLORIDE 8 MEQ CAPSULE PO SCH (09:36)
[2016-08-25] MEDS: amLODIPine 10 MG TABLET PO SCH (09:36)
[2016-08-25] MEDS: cloNIDine 0.1 MG TABLET PO SCH (09:37)
[2016-08-25] MEDS: PANTOPRAZOLE 40 MG TABLET PO SCH (09:37)
[2016-08-25 10:37] VITALS: BP 190/90
== END 2016-08-25 09:45 | DRG 300 ==
LOC: N.ULTRA 12:29 → N.2E 13:58
PROVIDERS: ADMIT Family Medicine; ATTEND Family Medicine

== ENCOUNTER 2017-02-08 03:25 | Inpatient (IN) ==
[2017-02-08] MEDS ORDERED: MORPHINE 2 MG/1 ML SYRINGE IV STA (04:11)
[2017-02-08] MEDS ORDERED: ONDANSETRON 4 MG/2 ML VIAL IV STA (04:11)
[2017-02-08] MEDS ORDERED: MORPHINE 2 MG/1 ML SYRINGE ONE (04:15)
[2017-02-08] MEDS ORDERED: ONDANSETRON 4 MG/2 ML VIAL ONE ×2 (04:15→13:40)
[2017-02-08 04:41] LABS: Basophils % 0.4 % (0.0-0.8); Eosinophils # 0.1 10*3/uL (0.0-0.87); Eosinophils % 0.8 % (0.00-10.9); Hematocrit 34.7 VOL% (35.7-47.0); Hemoglobin 11.4 GM/DL (12.0-16.0); Immature Granulocytes % 0.3 %; Immature Granulocytes Absolute 0.03 #; Lymphocytes % 9.6 % (21.3-54.2); Mean Corpuscular HGB Conc 32.9 GM/DL (32-36); Mean Corpuscular Hemoglobin 30 PG (27-34); Mean Corpuscular Volume 91.6 FL (87-102); Mean Platelet Volume 11.9 FL (9.6-12.0); Monocytes # 0.6 10*3/uL (0.11-0.8); Monocytes % 5.4 % (1.7-12.7); Neutrophils # 8.6 10*3/uL (1.4-7.4); Neutrophils % 83.5 % (38.7-73.9); Platelet Count 343 T/CUMM (130-400); Red Blood Count 3.79 MC/CUMM (3.8-5.5); Red Cell Distribution Width 14.3 % (9.3-17.3); White Blood Count 10.3 T/CUMM (4-12)
[2017-02-08 04:55] LABS: INR 1.4; PT Patient Result 14.7 SECS; Partial Thromboplastin Time 26.6 SECS (0-40)
[2017-02-08 05:00] LABS: Albumin 2.5 G/DL (3.4-5.0); Bilirubin,Total 0.8 MG/DL (0.2-1.0); Calcium 9.5 MG/DL (8.5-10.1); Osmolality,Calculated 283.2 MOS/KG (273-304); Potassium 3.7 MMOL/L (3.5-5.1); Total Protein 7.9 G/DL (6.4-8.3)
[2017-02-08 05:07] LABS: Apearance,Urine Slightly Hazy (Clear); Bacteria,Urine Occasional /HPF (Few); Bilirubin,Urine Negative (Negative); Blood, Urine Small mg/dL (Negative); Glucose,Urine (UA) 150 mg/dL (Negative); Hyaline Casts,Urine 1 /LPF (0-3); Ketones,Urine 5 mg/dL (Negative); Mucus,Urine Occasional /LPF (Occasional); Nitrite,Urine Negative (Negative); Protein,Urine 100 MG/DL; RBC,Urine 2 /HPF (0-4); Squamous Epithelial Cell,Urine Occasional /HPF (0-10); Urine Color Yellow (Yellow); Urine Specific Gravity 1.008 (1.001-1.035); Urine Urobilinogen < 2.0 EU/DL (0.2-1.0); WBC,Urine 1 /HPF (0-6)
[2017-02-08] MEDS ORDERED: hydrALAZINE 20 MG/1 ML VIAL IV STA (05:09)
[2017-02-08] MEDS ORDERED: hydrALAZINE 20 MG/1 ML VIAL ONE (05:13)
[2017-02-08] MEDS ORDERED: DEXTROSE 50% 25 GM/50 ML VIAL IV PRN ×2 (06:18→12:18)
[2017-02-08] MEDS ORDERED: hydrALAZINE 20 MG/1 ML VIAL IV ONE (06:18)
[2017-02-08] MEDS ORDERED: GLUCAGON 1 MG VIAL IM PRN ×2 (06:18→12:18)
[2017-02-08] MEDS ORDERED: ONDANSETRON 4 MG/2 ML VIAL IV PRN (06:18)
[2017-02-08] MEDS: MORPHINE 2 MG/1 ML SYRINGE IV PRN (08:48)
[2017-02-08] MEDS ORDERED: CETIRIZINE 10 MG TABLET PO PRN (09:11)
[2017-02-08] MEDS ORDERED: KETOROLAC 15 MG/1 ML VIAL IV ONE (09:17)
[2017-02-08] MEDS: DOCUSATE SODIUM 100 MG CAPSULE PO SCH ×2 (10:03→20:49)
[2017-02-08] MEDS: PANTOPRAZOLE 40 MG TABLET PO SCH (10:03)
[2017-02-08 10:05] LABS: INR 1.4; PT Patient Result 14.8 SECS
[2017-02-08] MEDS ORDERED: MORPHINE 2 MG/1 ML SYRINGE IV ONE (11:12)
[2017-02-08] MEDS ORDERED: ALBUTEROL 2.5 MG/3 ML NEB RESP TX ONE (11:31)
[2017-02-08] MEDS ORDERED: SODIUM CHLORIDE 0.9% 1,000 ML IV SCH (12:00)
[2017-02-08] MEDS ORDERED: INSULIN REGULAR 100 UNIT/ML ONE (12:33)
[2017-02-08] MEDS: INSULIN REGULAR 100 UNIT/ML SUBCUT SCH ×3 (12:50→20:57)
[2017-02-08] MEDS ORDERED: ETOMIDATE 20 MG/10 ML VIAL IV ONE (13:40)
[2017-02-08] MEDS ORDERED: KETOROLAC 30 MG/1 ML VIAL ONE (13:40)
[2017-02-08] MEDS ORDERED: GLYCOPYRROLATE 0.4 MG/2 ML VIAL ONE (13:40)
[2017-02-08] MEDS ORDERED: ROCURONIUM 100 MG/10 ML VIAL IV ONE (13:40)
[2017-02-08] MEDS ORDERED: LIDOCAINE 1% 5 ML VIAL ONE (13:40)
[2017-02-08] MEDS ORDERED: DEXAMETHASONE 4 MG/1 ML VIAL ONE (13:40)
[2017-02-08] MEDS ORDERED: PHENYLEPHRINE 1 MG/10 ML SYRINGE IV ONE (13:40)
[2017-02-08] MEDS ORDERED: CLINDAMYCIN INJ 50 ML IV ONE (14:21)
[2017-02-08] MEDS ORDERED: SEVOFLURANE 1 UNIT/15 MINUTE INH ONE (16:42)
[2017-02-08] MEDS ORDERED: fentaNYL 100 MCG/2 ML VIAL ONE (16:43)
[2017-02-08] MEDS ORDERED: NEOSTIGMINE 10 MG/10 ML VIAL ONE (16:43)
[2017-02-08] MEDS ORDERED: ACETAMINOPHEN 1,000 MG/100 ML VIAL IV ONE (16:43)
[2017-02-08] MEDS ORDERED: cloNIDine 0.1 MG TABLET PO ONE (17:00)
[2017-02-08] MEDS ORDERED: amLODIPine 10 MG TABLET PO ONE (17:00)
[2017-02-08 17:07] LABS: Hematocrit 30.5 VOL% (35.7-47.0); Hemoglobin 10.2 GM/DL (12.0-16.0)
[2017-02-08] MEDS: cloNIDine 0.1 MG TABLET PO SCH (20:49)
[2017-02-08] MEDS: traMADol 50 MG TABLET PO SCH (20:50)
[2017-02-08] MEDS: CARVEDILOL 25 MG TABLET PO SCH (20:50)
[2017-02-08] MEDS: QUEtiapine 25 MG TABLET PO SCH (20:50)
[2017-02-08] MEDS: INSULIN GLARGINE 100 UNIT/ML SUBCUT SCH (20:57)
[2017-02-08] MEDS: SODIUM CHLORIDE 0.9% 1,000 ML IV SCH (22:30)
[2017-02-09 04:50] LABS: Hematocrit 21.4 VOL% (35.7-47.0); Hemoglobin 7.2 GM/DL (12.0-16.0)
[2017-02-09] MEDS: SODIUM CHLORIDE 0.9% 1,000 ML IV SCH ×2 (07:02→14:55)
[2017-02-09] MEDS: INSULIN REGULAR 100 UNIT/ML SUBCUT SCH ×4 (07:42→20:15)
[2017-02-09] MEDS ORDERED: SODIUM CHLORIDE 0.9% 250 ML IV PRN (08:30)
[2017-02-09] MEDS: amLODIPine 10 MG TABLET PO SCH (09:07)
[2017-02-09] MEDS: QUEtiapine 25 MG TABLET PO SCH ×2 (09:07→20:14)
[2017-02-09] MEDS: CARVEDILOL 25 MG TABLET PO SCH ×2 (09:07→20:15)
[2017-02-09] MEDS: DOCUSATE SODIUM 100 MG CAPSULE PO SCH ×2 (09:07→20:14)
[2017-02-09] MEDS: metOLazone 5 MG TABLET PO SCH (09:07)
[2017-02-09] MEDS: traMADol 50 MG TABLET PO SCH ×2 (09:07→20:14)
[2017-02-09] MEDS: PANTOPRAZOLE 40 MG TABLET PO SCH (09:08)
[2017-02-09] MEDS: cloNIDine 0.1 MG TABLET PO SCH ×2 (09:08→20:15)
[2017-02-09 09:45] LABS: Basophils % 0.1 % (0.0-0.8); Hematocrit 19.9 VOL% (35.7-47.0); Hemoglobin 6.7 GM/DL (12.0-16.0); Immature Granulocytes % 0.4 %; Immature Granulocytes Absolute 0.05 #; Lymphocytes # 1.3 10*3/uL (1.4-4.0); Lymphocytes % 10.5 % (21.3-54.2); Mean Corpuscular HGB Conc 33.7 GM/DL (32-36); Mean Corpuscular Hemoglobin 31 PG (27-34); Mean Corpuscular Volume 92.1 FL (87-102); Mean Platelet Volume 12.4 FL (9.6-12.0); Monocytes # 1.4 10*3/uL (0.11-0.8); Monocytes % 11.4 % (1.7-12.7); Neutrophils # 9.7 10*3/uL (1.4-7.4); Neutrophils % 77.6 % (38.7-73.9); Platelet Count 243 T/CUMM (130-400); Red Blood Count 2.16 MC/CUMM (3.8-5.5); Red Cell Distribution Width 14.3 % (9.3-17.3); White Blood Count 12.5 T/CUMM (4-12)
[2017-02-09 10:13] LABS: Calcium 7.8 MG/DL (8.5-10.1); Osmolality,Calculated 289.3 MOS/KG (273-304); Potassium 3.9 MMOL/L (3.5-5.1)
[2017-02-09] MEDS ORDERED: SKIN HEALING OINT (AQUAPHOR) 50 GM TUBE TOP PRN (10:13)
[2017-02-09 17:40] LABS: Hemoglobin 10.1 GM/DL (12.0-16.0)
[2017-02-09] MEDS: cloNIDine 0.1 MG TABLET PO PRN (17:40)
[2017-02-09] MEDS: INSULIN GLARGINE 100 UNIT/ML SUBCUT SCH (20:15)
[2017-02-09] MEDS: MORPHINE 2 MG/1 ML SYRINGE IV PRN (22:11)
[2017-02-10] MEDS: SODIUM CHLORIDE 0.9% 1,000 ML IV SCH ×4 (00:40→22:05)
[2017-02-10 03:43] LABS: Basophils % 0.2 % (0.0-0.8); Eosinophils # 0.1 10*3/uL (0.0-0.87); Eosinophils % 1.3 % (0.00-10.9); Hematocrit 26.3 VOL% (35.7-47.0); Hemoglobin 8.9 GM/DL (12.0-16.0); Immature Granulocytes % 0.3 %; Immature Granulocytes Absolute 0.03 #; Lymphocytes # 1.3 10*3/uL (1.4-4.0); Lymphocytes % 15.5 % (21.3-54.2); Mean Corpuscular HGB Conc 33.8 GM/DL (32-36); Mean Corpuscular Hemoglobin 32 PG (27-34); Mean Corpuscular Volume 93.3 FL (87-102); Mean Platelet Volume 12.2 FL (9.6-12.0); Monocytes # 1.3 10*3/uL (0.11-0.8); Neutrophils # 5.9 10*3/uL (1.4-7.4); Neutrophils % 67.7 % (38.7-73.9); Platelet Count 202 T/CUMM (130-400); Red Blood Count 2.82 MC/CUMM (3.8-5.5); Red Cell Distribution Width 14.6 % (9.3-17.3); White Blood Count 8.7 T/CUMM (4-12)
[2017-02-10 03:49] LABS: Calcium 7.6 MG/DL (8.5-10.1); Osmolality,Calculated 283.7 MOS/KG (273-304); Potassium 3.9 MMOL/L (3.5-5.1)
[2017-02-10] MEDS ORDERED: WARFARIN 1 MG TABLET PO ONE (07:41)
[2017-02-10] MEDS: INSULIN REGULAR 100 UNIT/ML SUBCUT SCH ×4 (07:53→21:20)
[2017-02-10] MEDS: QUEtiapine 25 MG TABLET PO SCH ×2 (09:00→20:00)
[2017-02-10] MEDS: CARVEDILOL 25 MG TABLET PO SCH ×2 (09:00→20:00)
[2017-02-10] MEDS: DOCUSATE SODIUM 100 MG CAPSULE PO SCH ×2 (09:00→20:00)
[2017-02-10] MEDS: traMADol 50 MG TABLET PO SCH ×2 (09:00→20:01)
[2017-02-10] MEDS: amLODIPine 10 MG TABLET PO SCH (09:00)
[2017-02-10] MEDS: PANTOPRAZOLE 40 MG TABLET PO SCH (09:00)
[2017-02-10] MEDS: metOLazone 5 MG TABLET PO SCH (09:00)
[2017-02-10] MEDS: cloNIDine 0.1 MG TABLET PO SCH ×2 (09:01→20:00)
[2017-02-10] MEDS: ACETAMINOPHEN 325 MG TABLET PO PRN ×2 (13:31→21:13)
[2017-02-10] MEDS: WARFARIN 5 MG TABLET PO SCH (17:45)
[2017-02-10] MEDS: INSULIN GLARGINE 100 UNIT/ML SUBCUT SCH (21:20)
[2017-02-10] MEDS: MORPHINE 2 MG/1 ML SYRINGE IM PRN (22:03)
[2017-02-11] MEDS: MORPHINE 2 MG/1 ML SYRINGE IM PRN ×2 (03:21→11:19)
[2017-02-11] MEDS: SODIUM CHLORIDE 0.9% 1,000 ML IV SCH (06:58)
[2017-02-11 07:36] LABS: Basophils % 0.2 % (0.0-0.8); Eosinophils # 0.1 10*3/uL (0.0-0.87); Eosinophils % 1.1 % (0.00-10.9); Hematocrit 30.7 VOL% (35.7-47.0); Hemoglobin 10.5 GM/DL (12.0-16.0); Immature Granulocytes % 0.5 %; Immature Granulocytes Absolute 0.06 #; Lymphocytes # 1.3 10*3/uL (1.4-4.0); Lymphocytes % 9.8 % (21.3-54.2); Mean Corpuscular HGB Conc 34.2 GM/DL (32-36); Mean Corpuscular Hemoglobin 31 PG (27-34); Mean Corpuscular Volume 91.9 FL (87-102); Mean Platelet Volume 11.5 FL (9.6-12.0); Monocytes # 1.2 10*3/uL (0.11-0.8); Monocytes % 9.2 % (1.7-12.7); Neutrophils # 10.5 10*3/uL (1.4-7.4); Neutrophils % 79.2 % (38.7-73.9); Platelet Count 277 T/CUMM (130-400); Red Blood Count 3.34 MC/CUMM (3.8-5.5); Red Cell Distribution Width 14.1 % (9.3-17.3); White Blood Count 13.2 T/CUMM (4-12)
[2017-02-11 07:46] LABS: INR 1.2; PT Patient Result 12.3 SECS
[2017-02-11 08:14] LABS: Calcium 8.2 MG/DL (8.5-10.1); Magnesium 1.8 MG/DL (1.8-2.4); Osmolality,Calculated 278.4 MOS/KG (273-304); Potassium 3.2 MMOL/L (3.5-5.1); Thyroid Stimulating Hormone 1.64 uIU/ml (0.358-3.74)
[2017-02-11] MEDS ORDERED: WARFARIN 3 MG TABLET PO ONE (08:28)
[2017-02-11] MEDS: INSULIN REGULAR 100 UNIT/ML SUBCUT SCH ×4 (08:42→20:53)
[2017-02-11] MEDS: traMADol 50 MG TABLET PO SCH ×2 (09:14→20:30)
[2017-02-11] MEDS: MUPIROCIN 2% OINT 22 GM TUBE TOP SCH ×2 (09:14→20:30)
[2017-02-11] MEDS: amLODIPine 10 MG TABLET PO SCH (09:14)
[2017-02-11] MEDS: DOCUSATE SODIUM 100 MG CAPSULE PO SCH ×2 (09:14→20:30)
[2017-02-11] MEDS: QUEtiapine 25 MG TABLET PO SCH ×2 (09:14→20:30)
[2017-02-11] MEDS: PANTOPRAZOLE 40 MG TABLET PO SCH (09:14)
[2017-02-11] MEDS: metOLazone 5 MG TABLET PO SCH (09:14)
[2017-02-11] MEDS: CARVEDILOL 25 MG TABLET PO SCH ×2 (09:14→20:30)
[2017-02-11] MEDS: cloNIDine 0.1 MG TABLET PO SCH ×2 (09:14→20:30)
[2017-02-11] MEDS: SODIUM CHLOR 0.45% KCL 20 MEQ 20 MEQ/1,000 ML BAG IV SCH ×3 (11:16→20:51)
[2017-02-11] MEDS: WARFARIN 5 MG TABLET PO SCH (17:39)
[2017-02-11] MEDS: INSULIN GLARGINE 100 UNIT/ML SUBCUT SCH (20:53)
[2017-02-12] MEDS: MORPHINE 2 MG/1 ML SYRINGE IM PRN ×4 (01:26→15:00)
[2017-02-12 05:14] LABS: INR 1.3; PT Patient Result 13.3 SECS
[2017-02-12] MEDS: SODIUM CHLOR 0.45% KCL 20 MEQ 20 MEQ/1,000 ML BAG IV SCH ×2 (05:37→14:52)
[2017-02-12 05:48] LABS: Calcium 7.6 MG/DL (8.5-10.1); Osmolality,Calculated 274.8 MOS/KG (273-304)
[2017-02-12] MEDS: INSULIN REGULAR 100 UNIT/ML SUBCUT SCH ×4 (07:25→22:44)
[2017-02-12 07:36] LABS: Apearance,Urine CLOUDY (Clear); Bacteria,Urine Occasional /HPF (Few); Bilirubin,Urine Negative (Negative); Blood, Urine Moderate mg/dL (Negative); Glucose,Urine (UA) Negative (Negative); Ketones,Urine Negative (Negative); Mucus,Urine Occasional /LPF (Occasional); Nitrite,Urine Negative (Negative); Protein,Urine 100 MG/DL; RBC,Urine 28 /HPF (0-4); Squamous Epithelial Cell,Urine Occasional /HPF (0-10); Urine Color Yellow (Yellow); Urine Specific Gravity 1.011 (1.001-1.035); WBC,Urine 371 /HPF (0-6)
[2017-02-12] MEDS ORDERED: WARFARIN 3 MG TABLET PO ONE (07:50)
[2017-02-12] MEDS: amLODIPine 10 MG TABLET PO SCH (08:20)
[2017-02-12] MEDS: QUEtiapine 25 MG TABLET PO SCH ×2 (08:20→20:35)
[2017-02-12] MEDS: traMADol 50 MG TABLET PO SCH ×2 (08:20→20:35)
[2017-02-12] MEDS: metOLazone 5 MG TABLET PO SCH (08:20)
[2017-02-12] MEDS: DOCUSATE SODIUM 100 MG CAPSULE PO SCH ×2 (08:21→20:35)
[2017-02-12] MEDS: PANTOPRAZOLE 40 MG TABLET PO SCH (08:21)
[2017-02-12] MEDS: CARVEDILOL 25 MG TABLET PO SCH ×2 (08:21→20:35)
[2017-02-12] MEDS: cloNIDine 0.1 MG TABLET PO SCH ×2 (08:21→20:35)
[2017-02-12] MEDS: MUPIROCIN 2% OINT 22 GM TUBE TOP SCH ×2 (08:34→20:35)
[2017-02-12] MEDS: WARFARIN 5 MG TABLET PO SCH (17:22)
[2017-02-12] MEDS ORDERED: ALBUTEROL/IPRATROPIUM 3 ML NEB RESP TX PRN (21:59)
[2017-02-12] MEDS ORDERED: ALBUTEROL/IPRATROPIUM 3 ML NEB RESP TX ONE (22:00)
[2017-02-12] MEDS: INSULIN GLARGINE 100 UNIT/ML SUBCUT SCH (22:45)
[2017-02-12 22:52] LABS: ABG Base Excess 1.1 MMOL/L (-2.5-2.5); ABG HCO3 24.8 MMOL/L (20-26); ABG Oxygen Saturation 99.2 % (95-100); ABG PCO2 35.7 MM HG (35-48); ABG PH 7.459 (7.35-7.45); ABG PO2 244.2 MM HG (80-95); ABG TCO2 25.9 MMOL/L (23-27)
[2017-02-13 04:57] LABS: Basophils % 0.3 % (0.0-0.8); Eosinophils # 0.3 10*3/uL (0.0-0.87); Eosinophils % 2.1 % (0.00-10.9); Hemoglobin 8.8 GM/DL (12.0-16.0); Immature Granulocytes % 0.4 %; Immature Granulocytes Absolute 0.05 #; Lymphocytes # 1.5 10*3/uL (1.4-4.0); Lymphocytes % 12.2 % (21.3-54.2); Mean Corpuscular HGB Conc 33.8 GM/DL (32-36); Mean Corpuscular Hemoglobin 32 PG (27-34); Mean Corpuscular Volume 93.2 FL (87-102); Mean Platelet Volume 11.6 FL (9.6-12.0); Monocytes # 1.2 10*3/uL (0.11-0.8); Neutrophils # 8.9 10*3/uL (1.4-7.4); Platelet Count 245 T/CUMM (130-400); Red Blood Count 2.79 MC/CUMM (3.8-5.5); Red Cell Distribution Width 13.9 % (9.3-17.3); White Blood Count 11.8 T/CUMM (4-12)
[2017-02-13 05:22] LABS: INR 1.3
[2017-02-13 05:27] LABS: Calcium 7.8 MG/DL (8.5-10.1); Osmolality,Calculated 273.4 MOS/KG (273-304); Potassium 4.6 MMOL/L (3.5-5.1)
[2017-02-13] MEDS: SODIUM CHLOR 0.45% KCL 20 MEQ 20 MEQ/1,000 ML BAG IV SCH (07:11)
[2017-02-13] MEDS ORDERED: FUROSEMIDE 40 MG/4 ML VIAL IV ONE (07:41)
[2017-02-13] MEDS ORDERED: WARFARIN 5 MG TABLET PO ONE ×2 (08:00→09:00)
[2017-02-13] MEDS: PANTOPRAZOLE 40 MG TABLET PO SCH (10:13)
[2017-02-13] MEDS: cloNIDine 0.1 MG TABLET PO SCH ×2 (10:13→21:01)
[2017-02-13] MEDS: traMADol 50 MG TABLET PO SCH ×2 (10:14→21:01)
[2017-02-13] MEDS: CARVEDILOL 25 MG TABLET PO SCH ×2 (10:14→21:01)
[2017-02-13] MEDS: amLODIPine 10 MG TABLET PO SCH (10:14)
[2017-02-13] MEDS: QUEtiapine 25 MG TABLET PO SCH ×2 (10:14→21:01)
[2017-02-13] MEDS: MUPIROCIN 2% OINT 22 GM TUBE TOP SCH ×2 (10:15→21:01)
[2017-02-13] MEDS: metOLazone 5 MG TABLET PO SCH (10:15)
[2017-02-13] MEDS: DOCUSATE SODIUM 100 MG CAPSULE PO SCH ×2 (10:15→21:01)
[2017-02-13] MEDS: INSULIN REGULAR 100 UNIT/ML SUBCUT SCH ×4 (10:15→21:06)
[2017-02-13] MEDS: POTASSIUM CHLORIDE INJ 10 MEQ in SODIUM CHLORIDE 0.9% 1,000 ML IV SCH (10:21)
[2017-02-13] MEDS: ACETAMINOPHEN 325 MG TABLET PO PRN ×2 (13:57→22:33)
[2017-02-13] MEDS: WARFARIN 5 MG TABLET PO SCH (17:39)
[2017-02-13] MEDS: INSULIN GLARGINE 100 UNIT/ML SUBCUT SCH (21:06)
[2017-02-14] MEDS: MORPHINE 2 MG/1 ML SYRINGE IM PRN ×3 (01:25→14:15)
[2017-02-14] MEDS: POTASSIUM CHLORIDE INJ 10 MEQ in SODIUM CHLORIDE 0.9% 1,000 ML IV SCH (06:03)
[2017-02-14] MEDS: traMADol 50 MG TABLET PO SCH ×2 (08:32→20:56)
[2017-02-14] MEDS: CARVEDILOL 25 MG TABLET PO SCH ×2 (08:32→20:56)
[2017-02-14] MEDS: QUEtiapine 25 MG TABLET PO SCH ×2 (08:32→20:56)
[2017-02-14] MEDS: amLODIPine 10 MG TABLET PO SCH (08:32)
[2017-02-14] MEDS: INSULIN REGULAR 100 UNIT/ML SUBCUT SCH ×4 (08:32→20:57)
[2017-02-14] MEDS: cloNIDine 0.1 MG TABLET PO SCH ×2 (08:32→20:56)
[2017-02-14] MEDS: DOCUSATE SODIUM 100 MG CAPSULE PO SCH ×2 (08:32→20:56)
[2017-02-14] MEDS: PANTOPRAZOLE 40 MG TABLET PO SCH (08:32)
[2017-02-14] MEDS: MUPIROCIN 2% OINT 22 GM TUBE TOP SCH ×2 (08:33→20:56)
[2017-02-14] MEDS: metOLazone 5 MG TABLET PO SCH (09:18)
[2017-02-14] MEDS: ACETAMINOPHEN 325 MG TABLET PO PRN (12:46)
[2017-02-14] MEDS: WARFARIN 5 MG TABLET PO SCH (18:30)
[2017-02-14] MEDS: INSULIN GLARGINE 100 UNIT/ML SUBCUT SCH (20:56)
[2017-02-15] MEDS: POTASSIUM CHLORIDE INJ 10 MEQ in SODIUM CHLORIDE 0.9% 1,000 ML IV SCH ×2 (03:10→23:34)
[2017-02-15] MEDS: cloNIDine 0.1 MG TABLET PO PRN (04:54)
[2017-02-15 06:28] LABS: Basophils # 0.1 10*3/uL (0.0-0.2); Basophils % 0.5 % (0.0-0.8); Eosinophils # 0.6 10*3/uL (0.0-0.87); Eosinophils % 6.7 % (0.00-10.9); Hematocrit 26.4 VOL% (35.7-47.0); Hemoglobin 8.8 GM/DL (12.0-16.0); INR 1.6; Immature Granulocytes % 0.5 %; Immature Granulocytes Absolute 0.05 #; Lymphocytes # 1.8 10*3/uL (1.4-4.0); Lymphocytes % 19.1 % (21.3-54.2); Mean Corpuscular HGB Conc 33.3 GM/DL (32-36); Mean Corpuscular Hemoglobin 31 PG (27-34); Mean Corpuscular Volume 93.6 FL (87-102); Mean Platelet Volume 11.4 FL (9.6-12.0); Monocytes # 0.9 10*3/uL (0.11-0.8); Monocytes % 10.1 % (1.7-12.7); Neutrophils # 5.8 10*3/uL (1.4-7.4); Neutrophils % 63.1 % (38.7-73.9); PT Patient Result 17.1 SECS; Platelet Count 328 T/CUMM (130-400); Red Blood Count 2.82 MC/CUMM (3.8-5.5); Red Cell Distribution Width 14.4 % (9.3-17.3); White Blood Count 9.2 T/CUMM (4-12)
[2017-02-15 06:44] LABS: Calcium 8.2 MG/DL (8.5-10.1); Potassium 4.8 MMOL/L (3.5-5.1)
[2017-02-15] MEDS: SODIUM CHLOR 0.45% KCL 20 MEQ 20 MEQ/1,000 ML BAG IV SCH (07:32)
[2017-02-15] MEDS: PANTOPRAZOLE 40 MG TABLET PO SCH (08:36)
[2017-02-15] MEDS: cloNIDine 0.1 MG TABLET PO SCH ×2 (08:36→20:51)
[2017-02-15] MEDS: amLODIPine 10 MG TABLET PO SCH (08:36)
[2017-02-15] MEDS: traMADol 50 MG TABLET PO SCH ×2 (08:36→20:52)
[2017-02-15] MEDS: DOCUSATE SODIUM 100 MG CAPSULE PO SCH ×2 (08:36→20:51)
[2017-02-15] MEDS: metOLazone 5 MG TABLET PO SCH (08:36)
[2017-02-15] MEDS: QUEtiapine 25 MG TABLET PO SCH ×2 (08:36→20:53)
[2017-02-15] MEDS: CARVEDILOL 25 MG TABLET PO SCH ×2 (08:37→20:52)
[2017-02-15] MEDS: INSULIN REGULAR 100 UNIT/ML SUBCUT SCH ×4 (08:37→20:53)
[2017-02-15] MEDS: MUPIROCIN 2% OINT 22 GM TUBE TOP SCH ×2 (08:37→20:53)
[2017-02-15] MEDS: WARFARIN 5 MG TABLET PO SCH (17:43)
[2017-02-15] MEDS: INSULIN GLARGINE 100 UNIT/ML SUBCUT SCH (20:53)
[2017-02-16 07:00] LABS: INR 1.4; PT Patient Result 15.1 SECS
[2017-02-16] MEDS: traMADol 50 MG TABLET PO SCH (08:10)
[2017-02-16] MEDS: MUPIROCIN 2% OINT 22 GM TUBE TOP SCH (08:10)
[2017-02-16] MEDS: CARVEDILOL 25 MG TABLET PO SCH (08:10)
[2017-02-16] MEDS: INSULIN REGULAR 100 UNIT/ML SUBCUT SCH ×2 (08:10→11:13)
[2017-02-16] MEDS: cloNIDine 0.1 MG TABLET PO SCH (08:10)
[2017-02-16] MEDS: QUEtiapine 25 MG TABLET PO SCH (08:10)
[2017-02-16] MEDS: amLODIPine 10 MG TABLET PO SCH (08:10)
[2017-02-16] MEDS: metOLazone 5 MG TABLET PO SCH (08:11)
[2017-02-16] MEDS: DOCUSATE SODIUM 100 MG CAPSULE PO SCH (08:11)
[2017-02-16] MEDS: PANTOPRAZOLE 40 MG TABLET PO SCH (08:11)
[2017-02-16] MEDS ORDERED: SULFAMETHOX/TRIMETHOPRIM 800-160 MG TABLET PO SCH (09:00)
[2017-02-16 11:25] VITALS: BP 161/80
[2017-02-16] MEDS ORDERED: WARFARIN 7.5 MG TABLET PO SCH (18:00)
== END 2017-02-16 12:25 | DRG 481 ==
LOC: N.ED 03:25 → N.EDINP 06:18 → N.3E 06:31 → N.ICU 18:41 → N.3E 02-09 18:52
PROVIDERS: ADMIT Family Medicine; ATTEND Family Medicine